=== PATIENT | female | born 1985 | race Caucasian/White ===

== ENCOUNTER 2018-09-13 09:35 | Emergency (ER) | payer MEDICAID ==
[~2018-09-13] VITALS: Ht 162.6 cm; Wt 84.0 kg
[~2018-09-13 09:35] MED LIST: AMIT75TA PO; AMOX1TAB61 PO; BACI28.43 PO; DOCU-131 PO; FAMO-79 PO; FLUC150T PO; HYDR-3237 PO; IBUP-1222 PO; LORA-445 PO; LORA1TAB; LORA2TAB PO; METO10TA82 PO; OMEP-110; OMEP-110 PO; OXYC-302 PO; POTA20TA91 PO; PROC25SU25 PR; PROM25AM6
[2018-09-13 11:21] LABS: ALBUMIN 3.3 g/dL (3.4-5.0); ANION GAP 8 mmol/L (5-15); CALCIUM 8.5 mg/dL (8.5-10.1); CHLORIDE 105 mmol/L (98-107)
[2018-09-13 11:25] LABS: ALANINE AMINOTRANSFERASE 19 U/L (12-78); ALKALINE PHOSPHATASE 68 U/L (45-117); BILIRUBIN,TOTAL 0.3 mg/dL (0.2-1.0); CREATININE 0.82 mg/dL (0.55-1.02); TOTAL PROTEIN 7.1 g/dL (6.4-8.2)
--- NOTE | 2018-09-13 11:45 | NUR ---
Pt states, "For three weeks I have had pain on my right side on my back. I thought it was my normal back pain. I then also fell on that hip and thought it was that. Then someone said something to me about my frequency in urination and thought maybe I had a uti or kidney infection." Pt denies cp, sob, blood in urine or stool, pain with urination. 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 Pt ambulates to restroom with steady gait and balance. Pt provided urine sample for UA.
[2018-09-13 12:02] LABS: MICROSCOPIC NOT IND
[2018-09-13 12:13] LABS: BASOPHILS # (AUTO) 0.03 x10^3/uL (0-0.1); BASOPHILS % (AUTO) 1 % (0-1); EOSINOPHILS # (AUTO) 0.31 x10^3/uL (0-0.4); EOSINOPHILS % (AUTO) 5 % (1-7); LYMPHOCYTES # (AUTO) 1.56 x10^3/uL (1-3.4); LYMPHOCYTES % (AUTO) 26 % (22-44); MD NO; MEAN CORPUSCULAR HEMOGLOBIN 30.9 pg (27.0-34.8); MEAN CORPUSCULAR HGB CONC 33.4 g/dL (32.4-35.8); MEAN CORPUSCULAR VOLUME 92.4 fL (80-100); MEAN PLATELET VOLUME 7.8 fL (7.4-10.4); MONOCYTES # (AUTO) 0.77 x10^3/uL (0.2-0.8); MONOCYTES % (AUTO) 13 % (2-9); NEUTROPHILS % (AUTO) 55 % (42-75); PLATELET COUNT 159 x10^3/uL (130-400); RED BLOOD COUNT 4.93 x10^6/uL (3.82-5.3); RED CELL DISTRIBUTION WIDTH 13.1 % (9.6-15.2)
[2018-09-13 12:14] LABS: CULTURE INDICATED? NO
[2018-09-13 13:45] VITALS: BP 108/79
--- NOTE | 2018-09-13 13:47 | NUR ---
Patient/Caregiver given discharge instructions and they have confirmed that they understand the instructions. Patient ambulatory with steady gait. PT LEFT WITH ALL PERSONAL BELONGINGS.
== END 2018-09-13 13:48 | disposition home or self-care (01) ==
LOC: ED 13:44
DX: J15.9 Unspecified bacterial pneumonia (principal)
CPT/HCPCS: 36415; 71046; 80053; 81003; 83690; 85025; 99284

== ENCOUNTER 2020-01-18 15:03 | Emergency (ER) | payer MEDICAID ==
[~2020-01-18] VITALS: Ht 162.6 cm; Wt 82.0 kg
[2020-01-18 15:20] VITALS: BP 106/82
[2020-01-18 15:50] LABS: BASOPHILS # (AUTO) 0.07 x10^3/uL (0-0.1); BASOPHILS % (AUTO) 1 % (0-1); EOSINOPHILS # (AUTO) 0.39 x10^3/uL (0-0.4); EOSINOPHILS % (AUTO) 5 % (1-7); LYMPHOCYTES # (AUTO) 1.94 x10^3/uL (1-3.4); LYMPHOCYTES % (AUTO) 22 % (22-44); MD NO; MEAN CORPUSCULAR HEMOGLOBIN 31.9 pg (27.0-34.8); MEAN CORPUSCULAR HGB CONC 33.7 g/dL (32.4-35.8); MEAN CORPUSCULAR VOLUME 94.6 fL (80-100); MEAN PLATELET VOLUME 7.3 fL (7.4-10.4); MONOCYTES # (AUTO) 0.52 x10^3/uL (0.2-0.8); MONOCYTES % (AUTO) 6 % (2-9); NEUTROPHILS # (AUTO) 5.85 x10^3/uL (1.8-6.8); NEUTROPHILS % (AUTO) 67 % (42-75); PLATELET COUNT 228 x10^3/uL (130-400); RED CELL DISTRIBUTION WIDTH 12.4 % (9.6-15.2)
[2020-01-18] MEDS ORDERED: METHOCARBAMOL 750 MG TABLET ONE (15:56)
[2020-01-18] MEDS ORDERED: METHOCARBAMOL 750 MG TABLET PO ONE (16:00)
[2020-01-18 16:05] LABS: ANION GAP 5 mmol/L (5-15); CALCIUM 9.2 mg/dL (8.5-10.1); CHLORIDE 106 mmol/L (98-107); CREATININE 0.81 mg/dL (0.55-1.02)
--- NOTE | 2020-01-18 16:10 | NUR ---
PT MEDICATED PER ERP ORDER. URINE COLLECTED/SENT TO LAB. CALL LIGHT WITHIN REACH.
[2020-01-18 16:42] LABS: HCG UR SG 1.024 (1.003-1.030); MICROSCOPIC NOT IND
== END 2020-01-18 17:38 | disposition home or self-care (01) ==
LOC: ED 17:34
DX: M54.5 Low back pain (principal); R53.1 Weakness; R11.2 Nausea with vomiting, unspecified; E86.0 Dehydration; F17.210 Nicotine dependence, cigarettes, uncomplicated
CPT/HCPCS: 36415; 80048; 81003; 81025; 85025; 99283; 99406

== ENCOUNTER 2020-06-15 12:21 | Emergency (ER) | payer MEDICAID ==
[~2020-06-15] VITALS: Ht 162.6 cm; Wt 85.0 kg
[2020-06-15 12:26] VITALS: BP 116/75
--- NOTE | 2020-06-15 12:33 | NUR ---
PATIENT WHEELED BACK FROM TRIAGE WITH CHIEF C/O RIGHT ANKLE PAIN. PATIENT STATES SHE WAS GETTING OUT OF [employer] TRUCK AND ROLLED HER ANKLE. SHE IS HAVING PAIN ON THE TOP OF HER RIGHT FOOT FROM THE "PINKY TOE TO THE ANKLE." PATIENT'S PAIN LEVEL IS A 7/10, NO SIGNS OF ACUTE DISTRESS, CALL LIGHT WITHIN REACH. PATIENT REFUSES PAIN MEDICATION AT THIS TIME.
--- NOTE | 2020-06-15 12:47 | NUR ---
LAY OUT INSPECTOR AT BEDSIDE.
--- NOTE | 2020-06-15 14:01 | NUR ---
Patient given discharge instructions and prescriptioin they have confirmed that they understand the instructions. Patient ambulatory with use of crutches to private vehicle.
== END 2020-06-15 14:01 | disposition home or self-care (01) ==
LOC: ED 13:14
DX: S93.401A Sprain of unspecified ligament of right ankle, initial encounter (principal); S90.31XA Contusion of right foot, initial encounter; W17.89XA Other fall from one level to another, initial encounter; Y93.89 Activity, other specified; Y92.488 Other paved roadways as the place of occurrence of the external cause; Y99.8 Other external cause status
CPT/HCPCS: 99284

== ENCOUNTER 2020-06-17 22:00 | Emergency (ER) | payer MEDICAID ==
[~2020-06-17] VITALS: Ht 162.6 cm; Wt 95.3 kg
[2020-06-17 22:03] VITALS: BP 129/86
--- NOTE | 2020-06-17 23:18 | NUR ---
PT RESTING IN BED, PT A/O X4. PT STATED SHE HAS HAD BRIGHT RED BLOOD ON TOILET PAPER AFTER BOWEL MOVEMENT. PT EDUCATED ABOUT HEMROIDS.
== END 2020-06-17 23:21 | disposition home or self-care (01) ==
LOC: ED 22:43
DX: K64.8 Other hemorrhoids (principal)
CPT/HCPCS: 99283

== ENCOUNTER 2020-12-22 08:47 | Emergency (ER) | payer MEDICAID ==
[~2020-12-22] VITALS: Ht 162.6 cm; Wt 97.2 kg
[~2020-12-22 08:47] MED LIST changes: -OXYC-302 PO; +OXYC1TAB12 PO
[2020-12-22 09:35] VITALS: BP 131/97
== END 2020-12-22 10:27 | disposition home or self-care (01) ==
LOC: ED 10:21
DX: N63.0 Unspecified lump in unspecified breast (principal); D17.21 Benign lipomatous neoplasm of skin and subcutaneous tissue of right arm
CPT/HCPCS: 99281